=== PATIENT | female | born 1985 | race African-American/Black ===

== ENCOUNTER 2019-04-11 08:34 | Emergency (ER) | payer BC ==
[~2019-04-11] VITALS: Ht 170.2 cm; Wt 100.4 kg
[2019-04-11 08:55] VITALS: BP 127/73
[2019-04-11] MEDS ORDERED: ACET325C7 PO (09:02)
[2019-04-11] MEDS ORDERED: PREN-380 PO (09:02)
--- NOTE | 2019-04-11 09:16 | NUR ---
PT AMBULATED TO BATHROOM THEN TO ROOM. PT IS 7-8 WEEKS . C/O VAGINAL BLEEDING X5 DAYS. PT SAW OBGYN WEDNESDAY AND STARTED BLEEDING WEDNESDAY. PT BLED THROUGH 3 ADULT DIAPERS YESTERDAY AND ON FIRST ONE TODAY. C/O ABD PAIN AND A SHOOTING PAIN THRU RT LEG X3 DAYS. PT STATES SHE HAS FELT FATIGUED SINCE BLEEDING STARTED. BLOOD RANGES FROM DARK RED TO A LIGHT PINK. LMP 02/14/19. PT TOOK TYLENOL AT 0730 TODAY. TAKING PRENATALS AND METFORMIN. LAYING IN BED, CALM/RELAXED. MEDHX: FIBROIDS, PCOS
[2019-04-11 10:04] LABS: BASOPHILS % (AUTO) 0.6 % (0.0-2.0); EOSINOPHILS # (AUTO) 0.1 K/uL (0-0.4); EOSINOPHILS % (AUTO) 0.8 % (0.0-4.0); HEMATOCRIT 35.7 % (36-48); LYMPHOCYTES # (AUTO) 1.3 K/uL (2.5-16.5); LYMPHOCYTES % (AUTO) 21.2 % (20.5-51.1); MEAN CORPUSCULAR HEMOGLOBIN 31 pg (27-31); MEAN CORPUSCULAR HGB CONC 34 g/dL (33-37); MEAN CORPUSCULAR VOLUME 92.9 fL (80-94); MONOCYTES # (AUTO) 0.3 K/uL (0.8-1.0); MONOCYTES % (AUTO) 5.5 % (1.7-9.3); NEUTROPHILS # (AUTO) 4.4 K/uL (1.8-7.7); NEUTROPHILS % (AUTO) 71.9 % (42.2-75.2); PLATELET COUNT (AUTO) 266 K/uL (140-450); RED BLOOD CELL COUNT(AUTO) 3.84 MIL/uL (4.20-5.40); RED CELL DISTRIBUTION WIDTH 14.4 % (11.6-13.7); WHITE BLOOD COUNT (AUTO) 6.1 K/uL (4.8-10.8)
--- NOTE | 2019-04-11 10:11 | NUR ---
US AT BEDSIDE.
[2019-04-11 10:33] LABS: APPEARANCE,URINE SL CLOUDY (CLEAR); BILIRUBIN,URINE NEGATIVE (NEGATIVE); BLOOD, URINE 3+ (NEGATIVE); COLOR,URINE AMBER (YELLOW); LEUKOCYTE ESTERASE ,URINE TRACE (NEGATIVE); NITRITE, URINE NEGATIVE (NEGATIVE); PH,URINE 5.5 (5.0-9.0); UGLUCOSE NEGATIVE (NEGATIVE)
[2019-04-11 11:11] LABS: RBC,URINE TOO NUMEROUS TO COUN /HPF (0-5)
--- NOTE | 2019-04-11 12:29 | NUR ---
PT AMBULATE TO BATHROOM
[2019-04-11 12:51] VITALS: BP 121/79
--- NOTE | 2019-04-11 12:52 | NUR ---
Patient discharged with v/s stable. Written and verbal after care instructions given and explained. Patient verbalized understanding. Ambulatory with steady gait. All questions addressed prior to discharge. Advised to follow up with PMD.
== END 2019-04-11 12:52 | disposition home or self-care (01) ==
LOC: MED 08:34
DX: O20.0 Threatened abortion (principal); O34.12 Maternal care for benign tumor of corpus uteri, second trimester; D25.9 Leiomyoma of uterus, unspecified; E28.2 Polycystic ovarian syndrome; Z3A.17 17 weeks gestation of pregnancy; Z79.1 Long term (current) use of non-steroidal anti-inflammatories (NSAID); Z79.899 Other long term (current) drug therapy; Z90.89 Acquired absence of other organs; Z87.42 Personal history of other diseases of the female genital tract
CPT/HCPCS: 36415; 76801; 76817; 81001; 81025; 84702; 85025; 86900; 86901; 87086; 99284; Q0092

== ENCOUNTER 2019-06-28 06:15 | Inpatient (IN) | payer BC ==
[~2019-06-28] VITALS: Ht 170.2 cm; Wt 96.6 kg
[~2019-06-28 06:15] MED LIST: ACET325C8 PO; HYDROmorphone 1 MG/ML AMP IVP PRN; ONDANSETRON 4 MG/2 ML VIAL IVP PRN; PREN-380 PO; diphenhydrAMINE 50 MG/ML VIAL IVP PRN
[2019-06-28] MEDS ORDERED: BUPIVACAINE-MPF 0.25% 30 ML VIAL INJ ONE (06:46)
[2019-06-28] MEDS ORDERED: EPINEPHrine 1:1000 - 1 MG/ML AMP ONE (06:47)
[2019-06-28 07:05] LABS: BASOPHILS % (AUTO) 0.8 % (0.0-2.0); EOSINOPHILS # (AUTO) 0.1 K/uL (0-0.4); EOSINOPHILS % (AUTO) 1.4 % (0.0-4.0); HEMATOCRIT 39.1 % (36-48); LYMPHOCYTES % (AUTO) 52.6 % (20.5-51.1); MEAN CORPUSCULAR HEMOGLOBIN 31 pg (27-31); MEAN CORPUSCULAR HGB CONC 33 g/dL (33-37); MEAN CORPUSCULAR VOLUME 94.2 fL (80-94); MONOCYTES # (AUTO) 0.2 K/uL (0.8-1.0); NEUTROPHILS # (AUTO) 1.5 K/uL (1.8-7.7); NEUTROPHILS % (AUTO) 40.2 % (42.2-75.2); PLATELET COUNT (AUTO) 275 K/uL (140-450); RED BLOOD CELL COUNT(AUTO) 4.15 MIL/uL (4.20-5.40); RED CELL DISTRIBUTION WIDTH 14.5 % (11.6-13.7); WHITE BLOOD COUNT (AUTO) 3.8 K/uL (4.8-10.8)
[2019-06-28 07:22] LABS: ANION GAP 11.8 (8-16); CARBON DIOXIDE 28.9 mmol/L (21-32); CREATININE 1.1 mg/dL (0.6-1.3); POTASSIUM 3.7 mmol/L (3.5-5.1)
[2019-06-28 07:24] LABS: ALBUMIN 3.2 g/dL (3.4-5.0); TOTAL BILIRUBIN 0.4 mg/dL (0.0-1.0)
[2019-06-28] MEDS ORDERED: MIDAZOLAM 2 MG/2 ML VIAL ONE (07:27)
[2019-06-28] MEDS ORDERED: fentaNYL 0.05 MG/ML VIAL ONE (07:27)
[2019-06-28] MEDS ORDERED: MEPERIDINE 50 MG/ML SYR ONE (07:28)
[2019-06-28] MEDS ORDERED: DEXAMETHASONE 4 MG/ML VIAL ONE (07:35)
[2019-06-28] MEDS ORDERED: SEVOFLURANE 250 ML BTL INH ONE (07:35)
[2019-06-28] MEDS ORDERED: PROPOFOL 200 MG/20 ML VIAL IV ONE (07:35)
[2019-06-28] MEDS ORDERED: SUCCINYLCHOLINE CHLORIDE 200 MG/10 ML VIAL IVP ONE (07:35)
[2019-06-28] MEDS ORDERED: KETOROLAC 30 MG/ML VIAL ONE (07:35)
[2019-06-28] MEDS ORDERED: ROCURONIUM 50 MG/5 ML VIAL IV ONE (07:35)
[2019-06-28] MEDS ORDERED: ONDANSETRON 4 MG/2 ML VIAL ONE (07:35)
[2019-06-28 07:52] LABS: APPEARANCE,URINE CLEAR (CLEAR); BILIRUBIN,URINE NEGATIVE (NEGATIVE); BLOOD, URINE NEGATIVE (NEGATIVE); COLOR,URINE YELLOW (YELLOW); LEUKOCYTE ESTERASE ,URINE NEGATIVE (NEGATIVE); NITRITE, URINE NEGATIVE (NEGATIVE); UGLUCOSE NEGATIVE (NEGATIVE)
[2019-06-28] MEDS ORDERED: ONDANSETRON 4 MG/2 ML VIAL IVP PRN ×3 (08:05→15:40)
[2019-06-28] MEDS: LACTATED RINGERS 1,000 ML IV SCH ×5 (08:05→23:51)
[2019-06-28] MEDS ORDERED: MEPERIDINE 25 MG/ML SYR IVP PRN ×2 (08:05→11:55)
[2019-06-28] MEDS ORDERED: diphenhydrAMINE 50 MG/ML VIAL IVP PRN ×2 (08:05→11:55)
[2019-06-28] MEDS ORDERED: HYDROmorphone 1 MG/ML AMP IVP PRN ×2 (08:05→11:55)
[2019-06-28 08:06] LABS: RBC,URINE 0-5 /HPF (0-5); WBC,URINE 0-5 /HPF (0-5)
[2019-06-28] MEDS ORDERED: oxyCODONE/APAP 5/325 MG 1 TAB TAB PO PRN (11:30)
[2019-06-28] MEDS: HYDROmorphone PFS 2 MG/ML SYR ONE ×2 (11:55→12:05)
[2019-06-28 12:30] VITALS: BP 108/61
--- NOTE | 2019-06-28 12:30 | NUR ---
RECEIVED REPORT FROM OR NURSE WILBERT. PATIENT IS ASLEEP, ABLE TO WAKE AND VERBALLY RESPONSIVE. RESPIRATION EVEN AND UNLABORED. VS 108/[id number] 15- O2 SAT 92% RA, TEMP 96.8. IV INTACT AND PATENT TO LEFT WRIST WITH 20G. LR INFUSING @120ML/HR. F/C CATH INTACT AND PATENT, DRAINING YELLOW COLORED URINE. NO S/S OF DISTRESS NOTED. WILL CONTINUE TO MONITOR PATIENT.
--- NOTE | 2019-06-28 13:23 | NUR ---
FAMILY AT BEDSIDE.
[2019-06-28] MEDS: KETOROLAC 30 MG/ML VIAL IM/IVP SCH ×3 (13:44→23:38)
[2019-06-28] MEDS ORDERED: ONDANSETRON 4 MG/2 ML VIAL IVP SCH (15:48)
[2019-06-28 16:00] VITALS: BP 108/59
[2019-06-28] MEDS: MORPHINE SULFATE 2 MG/ML SYR IVP PRN ×3 (16:21→22:31)
--- NOTE | 2019-06-28 16:22 | NUR ---
MEDICATED FOR PAIN TO LOWER ABDOMEN AREA. PATIENT IS LYING FLAT IN BED. IV INTACT AND PATENT TO LEFT WRIST WITH IVF LR @120ML/HR. TOLERATING WELL. CALL LIGHT WITHIN REACH. FAMILY AT BEDSIDE. WILL CONTINUE TO MONITOR.
--- NOTE | 2019-06-28 18:00 | NUR ---
NO S/S OF DISTRESS NOTED PATIENT IS LYING IN BED AWAKE AND ALERT. PATIENT'S IVF STILL INFUSING @120ML LR, TOLERATING WELL. WILL ENDORSE TO EARLY HEAD START DIRECTOR FOR CONTINUITY OF CARE.
--- NOTE | 2019-06-28 19:10 | NUR ---
PAIN MEDICATION GIVEN FOR SEVERE PAIN TO LOWER ABDOMEN INCISION. WILL ENDORSE FOR CONTINUITY OF CARE. PATIENT IS IN STABLE CONDITION.
--- NOTE | 2019-06-28 19:10 | NUR ---
RECIEVED PT AAOX4, WITH BEARABLE PAIN AT THIS TIME, WITH FC DRAINING CLEAR URINE OUPUT , REG. DIET TO BE STARTED , NID , IV SITE INTACT AND PATENT , WITH SURGICAL DRESSING DRY AND INTACT , RELATIVES AT BEDSIDE . PLAN OF CARE DISCUSSED AND VERBALIZE UNDERSTANDING - CALL LIGHT WITHIN REACH . ON SAFETY/FALL PRECAUTION PROTOCOL - REMINDS THE USE OF CALL LIGHT . WILL CONT. TO MONITOR.
[2019-06-28 20:00] VITALS: BP 110/60
[2019-06-28] MEDS ORDERED: MORPHINE SULFATE 2 MG/ML SYR IVP PRN (21:40)
--- NOTE | 2019-06-28 22:31 | NUR ---
C/O PAIN - CHARGE NURSE RELAYED THE C/O PAIN TO OSCAR - MADE NEW OARDER AND CARRIED OUT . WILL CONT. TO MONITOR.
[2019-06-29] VITALS: BP 110/60
--- NOTE | 2019-06-29 | NUR ---
MADE ROUNDS , NO SIGNS OF ACUTE DISTRESS NOTED - CALL LIGHT WITHIN REACH . WILL CONT. TO MONITOR.
[2019-06-29] MEDS: MORPHINE SULFATE 2 MG/ML SYR IVP PRN ×5 (01:17→22:48)
--- NOTE | 2019-06-29 02:00 | NUR ---
MADE BRIDGETTE . NO SIGNS OF ACUTE DISTRESS NOTED AT THIS TIME - CALL LIGHT WITHIN REACH . WILL CONT. TO MONITOR.
[2019-06-29 04:00] VITALS: BP 111/60
--- NOTE | 2019-06-29 04:00 | NUR ---
MADE ROUNDS . RESP EVEN AND UNLABORED . NO ACTIVE BLEEDING ON SURGICAL SITE NOTED . WILL CONT. TO MONITOR
[2019-06-29] MEDS: LACTATED RINGERS 1,000 ML IV SCH ×3 (04:32→21:38)
[2019-06-29 06:52] LABS: BASOPHILS % (AUTO) 0.4 % (0.0-2.0); EOSINOPHILS % (AUTO) 0.1 % (0.0-4.0); HEMATOCRIT 30.2 % (36-48); HEMOGLOBIN 10.3 g/dL (12.0-16.0); LYMPHOCYTES # (AUTO) 1.8 K/uL (2.5-16.5); LYMPHOCYTES % (AUTO) 33.1 % (20.5-51.1); MEAN CORPUSCULAR HEMOGLOBIN 32 pg (27-31); MEAN CORPUSCULAR HGB CONC 34 g/dL (33-37); MEAN CORPUSCULAR VOLUME 93.8 fL (80-94); MONOCYTES # (AUTO) 0.4 K/uL (0.8-1.0); MONOCYTES % (AUTO) 7.4 % (1.7-9.3); NEUTROPHILS # (AUTO) 3.2 K/uL (1.8-7.7); PLATELET COUNT (AUTO) 224 K/uL (140-450); RED BLOOD CELL COUNT(AUTO) 3.22 MIL/uL (4.20-5.40); RED CELL DISTRIBUTION WIDTH 14.3 % (11.6-13.7); WHITE BLOOD COUNT (AUTO) 5.5 K/uL (4.8-10.8)
--- NOTE | 2019-06-29 07:10 | NUR ---
ENDORSED TO AM SHIFT DUE TO VOID 8AM .STABLE CONDITION.
[2019-06-29] MEDS: KETOROLAC 30 MG/ML VIAL IM/IVP SCH ×2 (07:11→11:18)
--- NOTE | 2019-06-29 07:15 | NUR ---
RECEIVED REPORT FROM NIGHT NURSE. PATIENT IS AWAKE AND ALERT. IV SITE TO LEFT WRIST INTACT AND PATENT WITH IVF LR INFUSING AT 120ML/HR. TOLERATING WELL. WILL CONTINUE TO MONITOR.
--- NOTE | 2019-06-29 07:30 | NUR ---
DR. VAUGHN AT BEDSIDE.
[2019-06-29 08:00] VITALS: BP 103/56
--- NOTE | 2019-06-29 08:25 | NUR ---
PAIN MEDICATION GIVEN FOR REPORT OF 9/10 PAIN TO LOWER ABDOMEN. PATIENT VOIDED X1, 300ML OUTPUT.
--- NOTE | 2019-06-29 08:38 | NUR ---
PATIENT HAS BEEN SCREENED AND CATEGORIZED LOW NUTRITION RISK. PATIENT WILL BE SEEN WITHIN 7 DAYS OF ADMISSION. 07/05/[address]
--- NOTE | 2019-06-29 10:30 | NUR ---
PT LAYING IN BED COMFORTABLY. ALERT AND ORIENTED X4. ABDOMINAL BINDER IN PLACE, ABDOMINAL DRESSING INTACT AND DRY. IV INTACT TO LEFT WRIST WITH IVF INFUSING AT 120ML/HR, TOLERATING WELL. PATIENT IS ASSISTED TO USE THE BEDPAN. NO S/S OF DISTRESS. WILL CONTINUE TO MONITOR FOR PAIN MANAGEMENT.
--- NOTE | 2019-06-29 10:36 | NUR ---
DC PLANNING: THIS IS A 34 YO FEMALE PATIENT FROM HOME, ADMITTED DUE TO SYMPTOMATIC FIBROID UTERUS. POST OP DAY 1 S/P OPEN MYOMECTOMY BY DR. VAUGHN. FC WAS DC'D TODAY. LABS STABLE. WITH COMPLAINTS OF ON AND OFF PAIN, PRN MORPHINE WAS GIVEN AT 0825. DC PLAN PENDING ON PATIENT'S RESPONSE TO TREATMENT. Addendum: 06/30/19 at 1405 by Capri Michelle CONTACTED CM SUNSHINE AT [facility]/ AT [phone] [id number], NO ANSWER. LEFT A DETAILED MESSAGE REGARDING PATIENT BEING STILL IN HOUSE. Addendum: 06/30/19 at 1531 by Capri Michelle CONTACTED CM SUNSHINE AT [facility]/BS STILL NO ANSWER. LEFT MESSAGE.
--- NOTE | 2019-06-29 10:55 | NUR ---
Leak Detection Engineer Note: Basic Screen: Yes High Risk DC Screen [place]: SHERRY PATIÑO Home Relationship: SIGNIFICANT OTHER Pre-Admission Living Arrangements: Lives with Other Prior ADL Independent Current Home Health Name/Tel: N/A Current DME/02 Name/Tel: N/A Current Hospice Name/Tel: N/A Current Dialysis Name/Tel: N/A Healthcare Decision Maker: Patient Advance Directive Yes - REFUSED Physician Orders for Life Sustaining Treatment Form No Patient/Family Have Educational Needs No Information Taught: Advance Directive Person Taught: Patient Teaching Tools: Verbal Factors Affecting Learning: None Participation Level: Active Evaluation: Verbalizes Understanding Needs Additional Education: No Discipline: Case Mgt/Social Svcs Tentative Discharge Plan/Destination: No Needs Identified Tentative Discharge Plan Summary: Patient is a 34 year 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 Patient was admitted from home. Patient's significant other, Sherry Patiño was present during assessment. Patient reports no past medical hx. SW verified demographics with patient. Patient's PCP is Dr. Sy and she was last seen in January/February of 2019. Patient reports no mental health history and no substance abuse history. SW offered education on advanced directive. Patient's and mother refused. Patient's tentative plan after discharge is to return home. No further needs identified. Signature: ADRIANA Coulter Date: Jun 29, 2019 Time: 10:52
[2019-06-29] MEDS: HYDROcodone/APAP 10/325 MG 1 TAB TAB PO PRN ×2 (11:36→17:05)
--- NOTE | 2019-06-29 11:37 | NUR ---
PT MEDICATED FOR BREAKTHROUGH PAIN WITH NORCO 10/325. WILL MONITOR FOR DECREASED PAIN. ABDOMINAL BINDER IN PLACE. ABDOMINAL DRESSING INTACT AND DRY. FAMILY AT BEDSIDE.
--- NOTE | 2019-06-29 14:44 | NUR ---
PT REPORTS PAIN 9/10 MORPHINE GIVEN PRN ORDERED. PATIENT LAYING DOWN IN BED, ABDOMINAL BINDER IN PLACE. VOIDED WITHOUT DIFFICULTY. WILL CONTINUE TO MONITOR.
--- NOTE | 2019-06-29 15:30 | NUR ---
PATIENT ABLE TO GET OUT OF BED AND AMBULATE FROM THE BED TO THE END OF THE PINTO WAY NEAR HER ROOM WITH 1 PERSON ASSIST.
[2019-06-29 16:00] VITALS: BP 110/58
--- NOTE | 2019-06-29 18:06 | NUR ---
RECEIVED ORDER TO START PT ON IBUPROFEN 800MG Q6H ROUTINE FOR PAIN MANAGEMENT.
[2019-06-29] MEDS: IBUPROFEN 800 MG TAB PO SCH ×2 (18:48→23:46)
--- NOTE | 2019-06-29 18:57 | NUR ---
PATIENT IN STABLE CONDITION. WILL ENDORSE PATIENTS CONTINUITY OF CARE TO AUTOMOTIVE ELECTRICAL FITTER NURSE.
--- NOTE | 2019-06-29 19:30 | NUR ---
RECEIVED BEDSIDE REPORT FROM AM SHIFT RN KEE, FOR PT'S CONTINUITY OF CARE. PT IS LYING DOWN, AAOX4, NO C/O PAIN, IS ON ROOM AIR, HAS LEFT WRIST 20G WITH LR AT 120 ML/HR. EXPLAINED TO PT THE ENCAPSULATOR ROUTINE, PT VERBALIZED UNDERSTANDING. ENCOURAGED PT TO AMBULATE FOR BETTER RECOVERY, PT VERBALIZED UNDERSTANDING. SAFETY MEASURES IN PLACE. BED IS ON LOW POSITION, SIDE RAILS ARE UP, AND CALL LIGHT IS WITHIN REACH. WILL MONITOR PT THROUGHOUT SHIFT.
[2019-06-29] MEDS: ONDANSETRON 4 MG/2 ML VIAL IVP PRN (20:02)
--- NOTE | 2019-06-29 20:02 | NUR ---
PT C/O NAUSEA. FAUSTINA JARRELL ADMINISTERED PRN ANTI-NAUSEA MEDICATION ORDERED. PT TOLERATED IT WELL. WILL CONTINUE TO MONITOR PT.
--- NOTE | 2019-06-29 22:48 | NUR ---
PT SCREAMING AND CRYING C/O SEVERE ABD PAIN AND NAUSEA. ADMINISTERED PRN IV PUSH PAIN MEDICATION ORDERED. PT TEACHING GIVEN AND SUGGESTED NON-PHARMACOLOGIC TECHNIQUES FOR PAIN RELIEF. PT AND FAM MEMBER VERBALIZED UNDERSTANDING. WILL CONTINUE TO MONITOR.
--- NOTE | 2019-06-29 23:30 | NUR ---
FAMILY MEMBER MADE AWARE THAT PER POLICY, VISITING HOURS IS ONLY UNTIL 1999. ENCOURAGED FAMILY MEMBER TO COME BACK IN THE AM AT 0800. COLLATING MACHINE OPERATOR MADE AWARE AND SPOKE TO PT AND FAMILY MEMBER.
[2019-06-30] VITALS: BP 109/59
--- NOTE | 2019-06-30 00:02 | NUR ---
PT STILL C/O NAUSEA, ADMINISTERED PRN IVP ANTI-NAUSEA MEDICATION ORDERED. ADMINISTERED SCHEDULED PO MEDICATION ORDERED. ASSISTED PT TO THE RESTROOM. PT TOLERATED THEM WELL. PT DENIES ANY PAIN AT THIS TIME. PT TEACHING GIVEN RE: PAIN MANAGEMENT. WILL CONTINUE TO MONITOR PT.
[2019-06-30] MEDS: ONDANSETRON 4 MG/2 ML VIAL IVP PRN ×3 (00:04→16:08)
--- NOTE | 2019-06-30 01:00 | NUR ---
ASKED FAMILY MEMBER AT BEDSIDE THAT VISITING HOURS IS OVER AND WE ARE NOT ALLOWED TO HAVE FAMILY MEMBER STAY OVERNIGHT. VERBALIZED UNDERSTANDING. PT DENIES ANY PAIN AND HAS NOT ASKED FOR STRONGER PAIN MEDICATION. WILL CONTINUE TO MONITOR PT.
--- NOTE | 2019-06-30 02:00 | NUR ---
MADE ROUNDS. PT LYING DOWN ASLEEP WITH NO SIGNS OF DISTRESS. WILL CONTINUE TO MONITOR PT.
--- NOTE | 2019-06-30 04:30 | NUR ---
PT WENT TO THE RESTROOM WITH BREAKFAST MANAGER ASSIST. PT TOLERATED ACTIVITY WELL. WILL CONTINUE TO MONITOR PT.
[2019-06-30] MEDS: IBUPROFEN 800 MG TAB PO SCH ×3 (06:05→17:07)
--- NOTE | 2019-06-30 06:05 | NUR ---
ADMINISTERED SCHEDULED PO MEDICATION ORDERED. HUNG NEW IV FLUID ORDERED. PT DENIES ANY PAIN AT THIS TIME. LANDCARE OFFICER ASSISTED PT TO THE RESTROOM. WILL ENDORSE TO AM SHIFT RN FOR PT'S CONTINUITY OF CARE.
[2019-06-30] MEDS: LACTATED RINGERS 1,000 ML IV SCH ×3 (06:06→17:07)
--- NOTE | 2019-06-30 07:15 | NUR ---
RECEIVED REPORT FROM PRINT OPERATOR NURSE. PT AAOX4, C/O LEVEL 03/25 HEADACHE, STATES "I HAVE MIGRAINE", WILL MEDICATE PT PER ORDER. IV ON LT WRIST 20 GA RUNNING IVF PER ORDER. RESPIRATIONS EVEN AND UNLABORED ON RA. LBM 06/30, ABD SOFT, ACTIVE BS. NOTED ABDOMINAL BINDER, DRESSING, CLEAN, DRY AND INTACT, PT IS S/P MYOMECTOMY. SAFETY MEASURES IN PLACE, CALL LIGHT WITHIN REACH. REVIEWED POC WITH PT AND FAMILY, VERBALIZED UNDERSTANDING.
[2019-06-30] MEDS: MORPHINE SULFATE 2 MG/ML SYR IVP PRN ×2 (07:41→18:24)
[2019-06-30 08:00] VITALS: BP 103/55
--- NOTE | 2019-06-30 08:13 | NUR ---
PATIENT HAS BEEN SCREENED AND CATEGORIZED LOW NUTRITION RISK. PATIENT WILL BE SEEN WITHIN 7 DAYS OF ADMISSION. 07/04/[address]
[2019-06-30] MEDS ORDERED: SIMETHICONE 80 MG TAB.CHEW PO PRN (08:40)
[2019-06-30] MEDS ORDERED: PROMETHAZINE 25 MG/ML VIAL IM PRN (08:40)
--- NOTE | 2019-06-30 09:25 | NUR ---
ADMINISTERED SIMETHICONE PER ORDER, PT IS AWARE OF INDICATIONS AND POTENTIAL SIDE EFFECTS. PT STATES THAT SHE NO LONGER HAS HEADACHE OR FEELINGS OF NAUSEA.
--- NOTE | 2019-06-30 09:47 | NUR ---
TOLERATED INCENTIVE SPIROMETRY THERAPY WELL ENCOURAGED PATIENT TO USE INCENTIVE SPIROMETRY EVERY 1-2 HOURS WHILE AWAKE
--- NOTE | 2019-06-30 11:20 | NUR ---
NOTIFIED DR. VAUGHN REGARDING PT'S VAGINAL BLEEDING, PER PHYSICIAN THIS IS NORMAL FOR S/P MYOMECTOMY. REASSURED PT THAT VAGINAL BLEEDINGS IS NORMAL, WILL CONTINUE TO MONITOR.
[2019-06-30] MEDS: HYDROcodone/APAP 10/325 MG 1 TAB TAB PO PRN (13:35)
--- NOTE | 2019-06-30 13:35 | NUR ---
ADMINISTERED NORCO FOR LEVEL 4/10 HEADACHE AFTER GETTING UP AND MOVING IN BED, WILL REASSESS WITHIN 1 HOUR.
[2019-06-30 16:00] VITALS: BP 126/78
--- NOTE | 2019-06-30 16:08 | NUR ---
ADMINISTERED ZOFRAN PER ORDER D/T PT C/O NAUSEA. WILL CONTINUE TO MONITOR.
--- NOTE | 2019-06-30 18:31 | NUR ---
PATIENT COMPLAINS OF SEVERE PAIN AND NAUSEATED. MORPHINE AND PHENERGAN GIVEN AT THIS TIME. WILL CONTINUE TO MONITOR .
--- NOTE | 2019-06-30 19:24 | NUR ---
ENDORSED PT TO WAREHOUSE TEAM LEADER NURSE. PT HAS NO SIGNS OF DISTRESS AT THIS TIME.
--- NOTE | 2019-06-30 19:25 | NUR ---
RECEIVED REPORT FROM AM SHIFT NURSE. PT AAOX4,ASKED PAIN LEVEL, PT STATED NO PAIN AT THIS TIME RECEIVED PAIN MEDS EARLIER. SHE STATES SHE IS FEELING MUCH BETTER AFTER THE PHENERGAN GIVEN EARLIER, NO NAUSEA. AND HAVE EATEN 100% OF HER FOOD. IV ON RT WRIST 22 GA RUNNING IVF PER ORDER. RESPIRATIONS EVEN AND UNLABORED ON RA. LBM 11/15, ABD SOFT, ACTIVE BS. NOTED ABDOMINAL BINDER, DRESSING, CLEAN, DRY AND INTACT, PT IS S/P MYOMECTOMY. SAFETY MEASURES IN PLACE, CALL LIGHT WITHIN REACH. REVIEWED POC WITH PT AND FAMILY, FAMILY AT BEDSIDE. VERBALIZED UNDERSTANDING.
[2019-06-30 20:00] VITALS: BP 126/79
--- NOTE | 2019-06-30 21:00 | NUR ---
CHECKED ON PATIENT, PT TRYING TO GET SOME SLEEP. NO COMPLAINTS OF PAIN. NO COMPLAINTS OF NAUSEA NOR VOMITING. PT ASKED TO WARM TEA. WILL CONTINUE TO MONITOR.
--- NOTE | 2019-06-30 23:19 | NUR ---
ROUNDING DONE. PT ASLEEP AT THIS TIME, FAMILY AT BEDSIDE. NO COMPLAINTS. NO SIGNS AND SYMPTOMS OF DISTRESS. WILL CONTINUE TO MONITOR
[2019-07-01] MEDS: IBUPROFEN 800 MG TAB PO SCH ×3 (00:05→12:10)
[2019-07-01] MEDS: LACTATED RINGERS 1,000 ML IV SCH (00:12)
--- NOTE | 2019-07-01 05:01 | NUR ---
PT SAID HER THROAT IS ITCHING, SHE SAID SHE THINKS SHE MAY HAVE SOME SPUTUM. INFORMED CHARGE NURSE. WILL INFORM DR. VAUGHN LATER IN THE AM. AND WILL ORDER CEPACOL Q2 FOR SORETHROAT PRN
[2019-07-01] MEDS: HYDROcodone/APAP 10/325 MG 1 TAB TAB PO PRN ×2 (05:05→13:28)
[2019-07-01] MEDS: BENZOCAINE/MENTHOL 1 LOZ MM PRN ×2 (05:11→13:28)
--- NOTE | 2019-07-01 06:30 | NUR ---
PT SLEEPING NOW, PT EASILY AROUSABLE TO VERBAL STIMULI, NOT IN RESPIRATORY DISTRESS, PT IN STABLE CONDITION.WILL ENDORSE TO NEXT SHIFT
--- NOTE | 2019-07-01 07:15 | NUR ---
RECEIVED REPORT FROM MECHANICAL DEVELOPMENT ENGINEER NURSE JK FOR CONTINUITY OF CARE. PT IN STABLE CONDITION. RESPIRATIONS EVEN AND UNLABORED, ROOM AIR. IV INTACT AND PATENT. SAFETY MEASURES IN PLACE. BED IN LOW POSITION. CALL LIGHT AT BEDSIDE. WILL CONTINUE TO MONITOR.
[2019-07-01 08:00] VITALS: BP 122/73
--- NOTE | 2019-07-01 09:30 | NUR ---
GAVE REPORT TO DAY SHIFT NURSE RUTH FOR CONTINUITY OF CARE. PT IN STABLE CONDITION.
--- NOTE | 2019-07-01 12:45 | NUR ---
DR VAUGHN AT BEDSIDE, RUBI REMOVED AND STERI STRIPS APPLIED BY DR VAUGHN, PT FREDDIE WELL.
--- NOTE | 2019-07-01 14:25 | NUR ---
DC INSTRUCTION GIVEN AND EXPLAINED TO PT AND , PT VERBALIZED FULL UNDERSTANDING, PT AMBULATING IN ROOM WITHOUT PROBLEM, ALL BELONGINGS COLLECTED BY PT AND , IV DC'D, CATH TIP INTACT, BLEEDING CONTROLLED, PT FREDDIE WELL, WOUND PHOTO TAKEN. PT ESCORTED OUT IN WHEELCHAIR, DC HOME NOW WITH .
== END 2019-07-01 14:35 | disposition home or self-care (01) | DRG 743 ==
LOC: MDS 06:15 → MMU 06:28 → MDS 11:12 → MTU 11:13 → MDS 19:59 → UNDOADMIN 20:00 → MTU 20:00
PROVIDERS: ADMIT Obstetrics & Gynecology; ATTEND Obstetrics & Gynecology
PROC: 0UB90ZZ Excision of Uterus, Open Approach (ICD-10-PCS; principal; 2019-06-28 07:30)
DX: D25.9 Leiomyoma of uterus, unspecified (principal); N92.1 Excessive and frequent menstruation with irregular cycle; N94.6 Dysmenorrhea, unspecified
CPT/HCPCS: 36415; 80053; 81001; 84702; 85025; 86886; 86900; 86901; 87081; 88305; J0171; J0330; J0690; J1100; J1170; J1885; J2175; J2250; J2270; J2405; J2550; J2704; J3010; J3490; J7060; J7120